=== PATIENT | female | born 1965 | race African-American/Black ===

== ENCOUNTER 2017-02-12 02:24 | Emergency (ER) | payer OTHER ==
[~2017-02-12] VITALS: Ht 165.1 cm; Wt 68.0 kg
[~2017-02-12 02:24] MED LIST: KEPPRA500 MG ORAL
[2017-02-12 02:30] VITALS: BP 132/76
[2017-02-12] MEDS ORDERED: levETIRAcetam 1,000mg/NS100ml 100 ML IVPB ONE (02:30)
[2017-02-12] MEDS ORDERED: Sodium Chloride 500ML 500 ML IV ONE (02:30)
[2017-02-12] MEDS ORDERED: LORazepam Inj 2mg/ml 1ml IV ONE (02:30)
[2017-02-12 02:46] LABS: BASOPHILS % (AUTO) 1.4 % (0.0-2.0); EOSINOPHILS % (AUTO) 0.9 % (0.0-3.0); HEMATOCRIT 44.4 % (37.0-47.0); LYMPHOCYTES % (AUTO) 36.1 % (20.0-45.0); MEAN CORPUSCULAR VOLUME 94 FL (80-99); MONOCYTES % (AUTO) 3.5 % (1.0-10.0); NEUTROPHILS % (AUTO) 58.2 % (45.0-75.0); PLATELET COUNT 258 K/UL (150-450); RED BLOOD COUNT 4.73 M/UL (4.20-5.40); RED CELL DISTRIBUTION WIDTH 12.2 % (11.6-14.8); WHITE BLOOD COUNT 4.7 K/UL (4.8-10.8)
[2017-02-12 03:00] LABS: ANION GAP 12 mmol/L (5-15); BLOOD UREA NITROGEN 8 mg/dL (7-18); CALCIUM 8.6 MG/DL (8.5-10.1); CARBON DIOXIDE 22 MMOL/L (21-32); CHLORIDE 106 MMOL/L (98-107); CREATININE 0.6 MG/DL (0.55-1.30); POTASSIUM 4.5 MMOL/L (3.5-5.1); SODIUM 140 MMOL/L (136-145)
[2017-02-12 03:09] LABS: ALANINE AMINOTRANSFERASE 26 U/L (12-78); ALBUMIN 4.2 G/DL (3.4-5.0); ALKALINE PHOSPHATASE 69 U/L (46-116); ASPARTATE AMINO TRANSFERASE 30 U/L (15-37); BILIRUBIN,TOTAL 1.1 MG/DL (0.2-1.0)
[2017-02-12 03:12] LABS: BILIRUBIN,DIRECT 0.1 MG/DL (0.0-0.3)
[2017-02-12 03:30] VITALS: BP 132/76
[2017-02-12] MEDS ORDERED: KEPPRA750 MG ORAL (03:31)
[2017-02-12 04:05] VITALS: BP 132/76
--- NOTE | 2017-02-12 04:40 | Emergency Room Report ---
History of Present Illness General Chief Complaint: Seizure Source: Patient, EMS Present Illness HPI 52-year-old female presents ED status post seizure. Patient had witnessed seizure at home. No head injury. Last for several seconds. No tongue injury. No incontinence. Patient has history of seizures and takes Keppra. states that she ran out of her medication approximately one week ago. Denies any headaches blurry vision. Denies nausea or vomiting. Denies chest pain or shortness of breath. Denies alcohol or drug use. No other aggravating relieving factors. Denies any other associated symptoms Allergies: Coded Allergies: ASPIRIN (Verified Allergy, Unknown, 02/12/17) SULFA (SULFONAMIDE ANTIBIOTICS) (Verified Allergy, Unknown, 02/12/17) Patient History Past Medical History: CVA/TIA, seizures Past Surgical History: none Pertinent Family History: none Social History: Denies: smoking, alcohol use, drug use Last Menstrual Period: unk Now: No Immunizations: UTD Reviewed Nursing Documentation: PMH: Agreed, PSxH: Agreed Nursing Documentation-PMH Past Medical History: No History, Except For Hx Cerebrovascular Accident: Yes Hx Seizures: Yes Review of Systems All Other Systems: negative except mentioned in HPI Physical Exam Vital Signs Date Time Temp Pulse Resp B/P (MAP) Pulse Ox O2 Delivery O2 Flow Rate FiO2 02/12/17 02:15 99.1 78 16 126/76 99 Room Air Sp02 EP Interpretation: reviewed, normal General Appearance: no apparent distress, alert, GCS 15, non-toxic Head: normocephalic, atraumatic Eyes: bilateral eye normal inspection, bilateral eye PERRL ENT: hearing grossly normal, normal pharynx, no angioedema, normal voice Neck: full range of motion, supple/symm/no masses Respiratory: chest non-tender, lungs clear, normal breath sounds, speaking full sentences Cardiovascular #1: regular rate, rhythm, no edema Cardiovascular #2: 2+ carotid (R), 2+ carotid (L), 2+ radial (R), 2+ radial (L) , 2+ dorsalis pedis (R), 2+ dorsalis pedis (L) Gastrointestinal: normal bowel sounds, non tender, soft, non-distended, no guarding, no rebound Rectal: deferred Genitourinary: normal inspection, no CVA tenderness Musculoskeletal: back normal, gait/station normal, normal range of motion, non- tender Neurologic: alert, oriented x3, responsive, motor strength/tone normal, sensory intact, speech normal Psychiatric: judgement/insight normal, memory normal, mood/affect normal, no suicidal/homicidal ideation Reflexes: 3+ bicep (R), 3+ bicep (L), 3+ tricep (R), 3+ tricep (L), 3+ knee (R) , 3+ knee (L) Skin: normal color, no rash, warm/dry, well hydrated Lymphatic: no adenopathy Medical Decision Making Diagnostic Impression: Primary Impression: Seizure disorder ER Course Hospital Course 52-year-old F presents to ED status post seizure. Differential diagnosis includes- breakthrough seizure, alcohol abuse, noncompliance with medication Clinical course Patient placed on stretcher. Initial history and physical I ordered labs, IV fluids, Keppra, ativan Labs-electrolytes okay, no leukocytosis, hemoglobin/hematocrit stable. Patient allowed to rest is now awake alert oriented x3. ambulating without difficulty. Family is at bedside and can take patient home. patient given Rx Keppra Diagnosis - seizure disorder stable and discharged to home with Rx Keppra. Followup with PMD. Return to ED if symptoms recur or worsen Labs Test 02/12/17 02:20 White Blood Count 4.7 K/UL (4.8-10.8) Red Blood Count 4.73 M/UL (4.20-5.40) Hemoglobin 14.0 G/DL (12.0-16.0) Hematocrit 44.4 % (37.0-47.0) Mean Corpuscular Volume 94 FL (80-99) Mean Corpuscular Hemoglobin 29.7 PG (27.0-31.0) Mean Corpuscular Hemoglobin Concent 31.6 G/DL (32.0-36.0) Red Cell Distribution Width 12.2 % (11.6-14.8) Platelet Count 258 K/UL (150-450) Mean Platelet Volume 5.4 FL (6.5-10.1) Neutrophils (%) (Auto) 58.2 % (45.0-75.0) Lymphocytes (%) (Auto) 36.1 % (20.0-45.0) Monocytes (%) (Auto) 3.5 % (1.0-10.0) Eosinophils (%) (Auto) 0.9 % (0.0-3.0) Basophils (%) (Auto) 1.4 % (0.0-2.0) Sodium Level 140 MMOL/L (136-145) Potassium Level 4.5 MMOL/L (3.5-5.1) Chloride Level 106 MMOL/L (98-107) Carbon Dioxide Level 22 MMOL/L (21-32) Anion Gap 12 mmol/L (5-15) Blood Urea Nitrogen 8 mg/dL (7-18) Creatinine 0.6 MG/DL (0.55-1.30) Estimat Glomerular Filtration Rate > 60 mL/min (>60) Glucose Level 126 MG/DL (74-106) Calcium Level 8.6 MG/DL (8.5-10.1) Total Bilirubin 1.1 MG/DL (0.2-1.0) Direct Bilirubin 0.1 MG/DL (0.0-0.3) Aspartate Amino Transf (AST/SGOT) 30 U/L (15-37) Alanine Aminotransferase (ALT/SGPT) 26 U/L (12-78) Alkaline Phosphatase 69 U/L (46-116) Total Protein 8.4 G/DL (6.4-8.2) Albumin 4.2 G/DL (3.4-5.0) Globulin 4.2 g/dL Albumin/Globulin Ratio 1.0 (1.0-2.7) Last Vital Signs Date Time Temp Pulse Resp B/P (MAP) Pulse Ox O2 Delivery O2 Flow Rate FiO2 02/12/17 02:15 99.1 78 16 126/76 99 Room Air Status: improved Disposition: HOME, SELF-CARE Condition: Stable Scripts Levetiracetam (KEPPRA) 750 Mg Tablet 1500 MG ORAL BID for 30 Days, TAB Prov: LUDIVINA STONE M.D. 02/12/17 Referrals: FABY MCKEON PLN,REFERRI (PCP) Patient Instructions: Seizure, Adult LUDIVINA STONE M.D. Feb 12, 2017 04:40
== END 2017-02-12 04:05 | disposition home or self-care (01) ==
LOC: EDBD 02:24 → EMR 02:30
DX: G40.909 Epilepsy, unspecified, not intractable, without status epilepticus (principal); R56.9 Unspecified convulsions; Z91.048 Other nonmedicinal substance allergy status; Z91.09 Other allergy status, other than to drugs and biological substances; Z86.73 Personal history of transient ischemic attack (TIA), and cerebral infarction without residual deficits
CPT/HCPCS: 36415; 80053; 82248; 82962; 85025; 96361; 96365; 96375; 99284; J1953; J7040